=== PATIENT | male | born 1955 | race Caucasian/White ===

== ENCOUNTER 2019-12-30 13:47 | Outpatient (CLI) | payer BC, SELFPAY ==
--- NOTE | ~2019-12-30 | XR_ITS ---
EXAMINATION: XR abdomen/kub 1V DATE: 12/30/2019 14:07 INDICATION: Left renal stone TECHNIQUE: A supine view of the abdomen on 2 radiographs was obtained. COMPARISON: 06/01/2019 FINDINGS: Again seen are couple 2 mm 3 mm stones at the lower pole of the left kidney. Large phlebolith in the right hemipelvis. No dilated bowel to suggest obstruction. Visualized portions of the lung bases are clear. Bones are unremarkable. IMPRESSION: 1. No interval change in a couple 2 mm and 3 mm stones at the lower pole of the left kidney. Reviewed, dictated and finalized at location A.
== END 2019-12-30 13:48 | disposition home or self-care (01) ==
LOC: ANHIMG 13:53
PROVIDERS: PCP Family Medicine; Visit Provider Nurse Practitioner Adult Health
DX: N20.0 Calculus of kidney (principal)
CPT/HCPCS: 74018

== ENCOUNTER 2021-01-09 14:19 | Outpatient (CLI) | payer OTHER, SELFPAY ==
--- NOTE | ~2021-01-09 | XR_ITS ---
EXAMINATION: XR abdomen/kub 1V EXAM DATE: 01/09/2021 14:36 INDICATION: Benign essential microscopic hematuria. Kidney stones. TECHNIQUE: Frontal projection of the upper abdomen, frontal projection lower abdomen/pelvis for inter pretation. Comparison is made to prior examination from 12/30/2019. FINDINGS: There is expected amount of colonic stool and gas. No small bowel dilation, nonobstructiv e bowel gas pattern. There are no suspicious calcifications identified, cannot identify previously suspected small left nephrolithiasis. There is no organomegaly suspected. The bones are unremarkab le. There is no free intraperitoneal air. The lung bases are clear. IMPRESSION: Unremarkable abdomen x-ray exam. Reviewed, dictated and finalized at location A.
== END 2021-01-09 14:20 | disposition home or self-care (01) ==
LOC: ANHIMG 14:25
PROVIDERS: PCP Family Medicine; Visit Provider Urology
DX: R31.1 Benign essential microscopic hematuria (principal)
CPT/HCPCS: 74018

== ENCOUNTER 2023-03-27 09:31 | Outpatient (CLI) | payer MEDICARE, SELFPAY ==
--- NOTE | ~2023-03-27 | XR_ITS ---
XR abdomen/kub 1V 03/27/2023 09:58 INDICATION: Left kidney stones TECHNIQUE: KUB COMPARISON: None FINDINGS: Bowel gas pattern is normal. There is no evidence of free air, mass, organomegaly, ascites or obstruction. No abnormal calculi are seen. Stable right pelvic phlebolith. The bones appear inta ct. IMPRESSION: 1: No acute abdominal abnormality identified. Reviewed, dictated and finalized at location B.
== END 2023-03-27 09:32 | disposition home or self-care (01) ==
PROVIDERS: PCP Family Medicine; Visit Provider Urology
DX: Z87.442 Personal history of urinary calculi (principal)
CPT/HCPCS: 74018

== ENCOUNTER 2024-04-18 10:12 | Outpatient (CLI) | payer MEDICARE, SELFPAY ==
--- NOTE | ~2024-04-18 | XR_ITS ---
Exam: Abdomen 2V HISTORY: HX OF KIDNEY STONES, ROUTINE YRLY EXAM, NO CURRENT SX COMPARISON: Examination is compared with multiple prior studies performed most recently on 03/27/2023 and dating back to 09/18/2018 TECHNIQUE: Supine images of the abdomen and pelvis. FINDINGS: Bowel gas pattern is non-obstructive. There is no free air or deep sulci. Moderate fecal stasis is identified within the mid to upper abdomen, without adequate visualization o f the bilateral kidneys. Lung bases are unremarkable. Bones and soft tissues are unremarkable. IMPRESSION: Moderate fecal stasis is identified within the mid to upper abdomen, without adequate visualization o f the bilateral kidneys. Reviewed, dictated and finalized at location A. IMPRESSION: Moderate fecal stasis is identified within the mid to upper abdomen, without ad equate visualization of the bilateral kidneys.
== END 2024-04-18 10:13 | disposition home or self-care (01) ==
LOC: ANHIMG 10:17
PROVIDERS: Visit Provider Urology
DX: Z87.442 Personal history of urinary calculi (principal)
CPT/HCPCS: 74018

== ENCOUNTER 2025-06-14 08:50 | Outpatient (CLI) | payer MEDICARE, SELFPAY ==
--- NOTE | ~2025-06-14 | XR_ITS ---
XR abdomen/kub 1V 06/14/2025 09:21 INDICATION: Kidney stones TECHNIQUE: KUB COMPARISON: None FINDINGS: Bowel gas pattern is normal. There is no evidence of free air, mass, organomegaly, ascites or obstruction. No abnormal calculi are seen. The bones appear intact. There is a right pelvic phlebolith. IMPRESSION: 1: No acute abdominal abnormality identified. Reviewed, dictated and finalized at location I. [facility]
== END 2025-06-14 08:51 | disposition home or self-care (01) ==
PROVIDERS: Visit Provider Urology
DX: Z87.442 Personal history of urinary calculi (principal)
CPT/HCPCS: 74018